=== PATIENT | female | born 1980 | race Two or more races ===

== ENCOUNTER 2018-11-16 17:21 | Emergency (ER) | payer MEDICARE, OTHER ==
[~2018-11-16] VITALS: Ht 165.1 cm; Wt 72.6 kg
--- NOTE | 2018-11-16 17:31 | NUR ---
ED Nurse Note: Per EMS, patient attempted to hurt herself last week and released from [address] Hold yesterday. EMS arrived here with 4 empty medication bottles. Lisinopril 20mg, date filled 08/19/16, furosemide 80mg, date filled 09/2016 and metoprolol succinate 50mg, date filled 09/2016 and Zoloft 100mg, filled 08/2018. EMS did not bring pills. Per EMS, patient took 's meds.
--- NOTE | 2018-11-16 17:40 | NUR ---
ED Nurse Note: Contacted poison control and spoke to michael Elliott. Recommended 6hr cardiac monitoring, activated charcoal, labs and seizure precaution.
--- NOTE | 2018-11-16 17:42 | NUR ---
ED Nurse Note:Sitter request made.
--- NOTE | 2018-11-16 17:43 | Emergency Room Report ---
History of Present Illness General Chief Complaint: Overdose Source: Patient, EMS (Juan Kim MD) Present Illness HPI Patient is a 38-year-old female brought in by EMS after reported overdose. Patient reportedly had been drinking alcohol and ingested approximately 30 Zoloft. Patient reportedly had been on a 5150 hold and was released today. Patient declines to comment further. (Juan Kim MD) Allergies: Coded Allergies: No Known Allergies (Unverified , 11/16/18) Patient History Last Menstrual Period: unknown Reviewed Nursing Documentation: PMH: Agreed; PSxH: Agreed (Juan Kim MD) Nursing Documentation-PMH Past Medical History: No History, Except For History Of Psychiatric Problem: Yes - depression, bipolar (Juan Kim MD) Review of Systems All Other Systems: negative except mentioned in HPI (Juan Kim MD) Physical Exam Vital Signs Date Time Temp Pulse Resp B/P (MAP) Pulse Ox O2 Delivery O2 Flow Rate FiO2 11/16/18 17:25 98.8 110 16 116/70 100 Room Air Sp02 EP Interpretation: reviewed, normal General Appearance: alert/responsive, no apparent distress, GCS 15, non-toxic Head: atraumatic Eyes: PERRL, lids + conjunctiva normal ENT: hearing intact, no angioedema Neck: supple/symm/no masses, no meningismus Respiratory: effort normal, no wheezing, chest symmetrical Cardiovascular: regular rate, rhythm, no edema Cardiovascular #2: 2+ carotid (R), 2+ carotid (L), 2+ dorsalis pedis (R), 2+ dorsalis pedis (L) Gastrointestinal: non-tender, no mass, non-distended, no rebound/guarding, normal bowel sounds Musculoskeletal: gait & station normal, strength & tone normal, normal ROM, non -tender Neurologic: normal inspection, CN II-XII intact, oriented x3, sensory intact, normal speech Skin: no rash, well hydrated Lymphatic: normal inspection (Juan Kim MD) Medical Decision Making Restraint Attestation I, Juan Kim MD, have personally evaluated this patient. Laboratory tests have been reviewed and addressed accordingly. The patient is deemed to present a danger to themselves and/or others. This is based on the exam, history ( provided by patient, EMS/[employer] and/or family) and observed or reported behavior. Attempts for non-invasive measures have been considered and/or attempted, however, have been futile. It is in the best interest of the nursing staff, the patient, and others involved in this patient's care that behavioral restraints be applied. Patient evaluation reveals the following: . Agitated patient who had been running into traffic. (Juan iKm MD) Diagnostic Impression: Primary Impression: Drug overdose ER Course Patient presented for overdose. Differential diagnosis include was not limited to, co-ingestion, alcohol intoxication, suicide attempt among others. Because of complexity of patient's case laboratory testing and imaging studies were ordered. Poison control was contacted regarding patient's overdose. Patient was noted to have multiple medications available which is unclear if she had additional overdoses these were from prescription bottles from 2016. Patient refused activated charcoal. Patient attempted to run out of the emergency department and was brought back by staff. Patient was placed in restraints. (Juan Kim MD) Last Vital Signs Date Time Temp Pulse Resp B/P (MAP) Pulse Ox O2 Delivery O2 Flow Rate FiO2 11/16/18 17:25 98.8 110 16 116/70 100 Room Air Status: improved (Juan Kim MD) Reevaluation Time: 11:14 Status: improved Reevaluation Impression Patient remains medically cleared, accepted to Dr. Devon Mccartney (KANDIS CHATTERJEE M.D) Disposition: XFER TO PSYCH HOSP/UNIT Condition: Stable Juan Kim MD Nov 16, 2018 17:43 KANDIS CHATTERJEE M.D Nov 17, 2018 11:14
[2018-11-16] MEDS ORDERED: Activated Charcoal 50gm/240ml Btl ORAL ONE (17:45)
--- NOTE | 2018-11-16 18:00 | NUR ---
ED Nurse Note: TATIANNA officerIraj was here.
--- NOTE | 2018-11-16 18:30 | NUR ---
ED Nurse Note: Patient left ER in gown. RN found patient on sidewalk and patient attempted to cross the street. Escorted patient back to ER #4. Dr. Kim notified and aware.
[2018-11-16 18:32] LABS: BASOPHILS % (AUTO) 1.2 % (0.0-2.0); EOSINOPHILS % (AUTO) 0.9 % (0.0-3.0); HEMATOCRIT 39.2 % (37.0-47.0); HEMOGLOBIN 13.3 G/DL (12.0-16.0); LYMPHOCYTES % (AUTO) 35.2 % (20.0-45.0); MEAN CORPUSCULAR VOLUME 87 FL (80-99); MONOCYTES % (AUTO) 4.7 % (1.0-10.0); PLATELET COUNT 378 K/UL (150-450); RED BLOOD COUNT 4.49 M/UL (4.20-5.40); RED CELL DISTRIBUTION WIDTH 11.5 % (11.6-14.8); WHITE BLOOD COUNT 12.1 K/UL (4.8-10.8)
[2018-11-16 18:33] VITALS: BP 97/52
--- NOTE | 2018-11-16 18:33 | NUR ---
ED Nurse Note: Pt is calm and cooperative at this time, let staffs give medication. Withholding behavioral restraint , not needed at this time. Security at bedside with pt.
[2018-11-16 18:39] LABS: APPEARANCE,URINE SLIGHTLY CLOUDY; BILIRUBIN, URINE NEGATIVE (NEGATIVE); COLOR,URINE PALE YELLOW; GLUCOSE, URINE (UA) NEGATIVE (NEGATIVE); KETONES,URINE NEGATIVE (NEGATIVE); LEUKOCYTE ESTERASE ,URINE 2+ (NEGATIVE); NITRITE,URINE NEGATIVE (NEGATIVE); PH,URINE 7 (4.5-8.0); PROTEIN,URINE NEGATIVE (NEGATIVE); UROBILINOGEN,URINE NORMAL MG/DL (0.0-1.0)
[2018-11-16 18:39] LABS: ANION GAP 13 mmol/L (5-15); BLOOD UREA NITROGEN 11 mg/dL (7-18); CALCIUM 8.6 MG/DL (8.5-10.1); CARBON DIOXIDE 25 MMOL/L (21-32); CHLORIDE 106 MMOL/L (98-107); POTASSIUM 3.7 MMOL/L (3.5-5.1); SODIUM 144 MMOL/L (136-145)
[2018-11-16 18:43] LABS: ALANINE AMINOTRANSFERASE 44 U/L (12-78); ALBUMIN 3.5 G/DL (3.4-5.0); ALBUMIN/GLOBULIN RATIO 0.9 (1.0-2.7); ALKALINE PHOSPHATASE 129 U/L (46-116); ASPARTATE AMINO TRANSFERASE 37 U/L (15-37); BILIRUBIN,TOTAL 0.2 MG/DL (0.2-1.0)
[2018-11-16 18:44] VITALS: BP 97/52
[2018-11-16] MEDS ORDERED: Haloperidol 5mg/ml Inj IM ONE (18:45)
[2018-11-16] MEDS ORDERED: DiphenhydrAMINE 50mg/ml Inj IM ONE (18:45)
--- NOTE | 2018-11-16 19:05 | NUR ---
ED Nurse Note: Pt sleeping on bed comfortably, calm and cooperative when waken up.
--- NOTE | 2018-11-16 19:06 | NUR ---
ED Nurse Note: Belongings are in locker #2.
[2018-11-16 19:28] VITALS: BP 84/40
--- NOTE | 2018-11-16 20:30 | NUR ---
ER Nurse Note: Pt BP low; ERMD aware. Verbal order for fluid. Sitter at bedside, no signs of distress. Will continue to montior.
[2018-11-17] VITALS: BP 98/60
--- NOTE | 2018-11-17 | NUR ---
ER Nurse Note: Pt continues to be asleep, no signs of distress, no pain. Sitter at bedside; all safety measures met. Will continue to montior.
[2018-11-17 04:00] VITALS: BP 104/58
--- NOTE | 2018-11-17 04:00 | NUR ---
ER Nurse Note: Pt asleep, no signs of distress, VSS. IV patent. All safety measures met. Will continue to monitor.
[2018-11-17 07:00] VITALS: BP 102/62
--- NOTE | 2018-11-17 07:00 | NUR ---
ER Nurse Note: Report given to GINA Johnson for continuity of care. Pt calm, cooperative. VSS, no signs of distress. Sitter at bedside.
--- NOTE | 2018-11-17 07:15 | NUR ---
ED Nurse Note: pt calm and sleeping in room. operations dispatcher observing pt as she is 5150 status with sitter order placed. no distress noted. pt remains contracted for safety.
--- NOTE | 2018-11-17 08:00 | NUR ---
ED Nurse Note: pt given breakfast tray
--- NOTE | 2018-11-17 08:30 | NUR ---
oswaldo faxed to [facility] waiting for call back
--- NOTE | 2018-11-17 09:30 | NUR ---
CLINICALS FAXED TO [facility] WILL CALL BACK AFTER REVIEW THE CHART
[2018-11-17 11:00] VITALS: BP 101/70
--- NOTE | 2018-11-17 11:00 | NUR ---
patient has been accepted at [facility] by dr myers at 12noon. for report [phone]
--- NOTE | 2018-11-17 11:53 | NUR ---
ED Nurse Note: pt aware of plan for psych transfer approx 1230pm and agrees. remains calm with staff.
--- NOTE | 2018-11-17 12:00 | NUR ---
CALL RECEVED FROM [facility] STATES PATIENT HAS MEDICARE OTHER THAN MEDICAL AND ADMITTING HAS BEEN NOTIFIED
--- NOTE | 2018-11-17 12:30 | NUR ---
PER INTAKE FROM [facility] NEW FACE SHEET HAS BEEN FAXED
[2018-11-17 14:00] VITALS: BP 110/70
--- NOTE | 2018-11-17 14:09 | NUR ---
PATIENT HAS BEEN ACCEPTED AT [facility] . CALL REPORT AT 1330 TL # [phone]
--- NOTE | 2018-11-17 14:45 | NUR ---
report given to clark coleman patient will be transferd to [facility]
[2018-11-17 16:12] VITALS: BP 98/56
--- NOTE | 2018-11-17 16:14 | NUR ---
ED Nurse Note: Reprot given to [facility] ems #[phone]. pt remains cooperative. all belongings sent with pt. pt a/ox4 [facility]. [facility]
== END 2018-11-17 16:16 ==
LOC: EDBD 17:21 → EMR 17:59
DX: T43.222A Poisoning by selective serotonin reuptake inhibitors, intentional self-harm, initial encounter (principal); Y92.9 Unspecified place or not applicable
CPT/HCPCS: 36415; 80053; 80307; 81003; 81025; 84484; 85025; 87086; 96372; 99285; G0480; J1200; J1630; 80329